=== PATIENT | female | born 1945 | race Caucasian/White ===

== ENCOUNTER 2025-03-18 18:50 | Emergency (ER) | payer MEDICARE ==
[~2025-03-18] VITALS: Ht 160 cm; Wt 70.0 kg
[~2025-03-18 18:50] MED LIST: ALEN70TA79 PO; ATOR40TA70 PO; FLUT16SP15; FOLI-43 PO
[2025-03-18 18:59] VITALS: O2SAT 97
[2025-03-18] MEDS ORDERED: FLUC150T46 MT (23:43)
[2025-03-18] MEDS ORDERED: CLOT15CR5 TP (23:43)
[2025-03-18] MEDS ORDERED: FLUCONAZOLE 100MG TABLET PO ONE (23:45)
[2025-03-19] MEDS: FLUCONAZOLE 150MG TABLET PO NR (00:03)
[2025-03-19 00:50] VITALS: BP 144/78; PULSE 63; RESP 20; TEMP 36.6; O2SAT 98
== END 2025-03-19 01:00 | disposition home or self-care (01) ==
LOC: ER 18:50
DX: K94.00 Colostomy complication, unspecified (principal); B37.2 Candidiasis of skin and nail; I10 Essential (primary) hypertension; Z79.899 Other long term (current) drug therapy; Z88.0 Allergy status to penicillin
CPT/HCPCS: 99283